=== PATIENT | male | born 1990 | race African-American/Black ===

== ENCOUNTER → 2018-10-17 | Outpatient (CLI) | payer OTHER ==
--- NOTE | 2018-10-18 19:14 | RADRPT ---
PROCEDURE: XR bilateral knees CLINICAL INDICATION: Pain TECHNIQUE: Bilateral AP and PA Merida views, bilateral sunrise views, weightbearing lateral view s of the left and right knee COMPARISON: None FINDINGS: Right knee: No displaced fracture. Mineralization is intact. Cartilage spaces are maintained. No sig nificant joint effusion. Left knee: No displaced fracture. Focal vertical linear lucency overlying the tibial plateau on late ral view. No significant joint effusion. IMPRESSION: 1. No significant cartilage space narrowing and marginal osteophyte formation. No significant joint effusion. 2. Focal vertical linear lucency overlying the left tibial plateau on lateral view may be projection al. Repeat radiographs or MRI may be obtained if clinically indicated. RPTAT: BBD[facility] Physician Geovanni Date Time Electronically viewed and signed by Physician Geovanni on 10/18/2018 19:14 [email or web address]/
--- NOTE | 2018-10-19 13:35 | CONS ---
Assessment/Plan Assessment/Plan Hospital Course (Demo Recall) 28-year-old male who injured his right knee just over 2 months ago. He is doing much better but continues to have 4/10 pain. His knee exam is normal today. His x-rays today do show a suspicious vertically oriented intra-articular line of the tibial plateau, only seen on the lateral view. This could be a nondisplaced tibial plateau fracture that is now clinically healed or could be a nondisplaced avulsion fracture of the tibial spine or this may be artifact/projectional. Given his mechanism of injury and continued pain an MRI of the right knee will be helpful in determining if this is real or not. In the meantime meloxicam 7.5 mg will be prescribed for pain. Depending on the results of the MRI the patient will be prescribed physical therapy. Follow-up after right knee MRI Consultation Date/Type/Reason Admit Date/Time Date of Consultation: Oct 17, 2018 Reason for Consultation Right knee pain Date/Time of Note DATE: 10/19/18 TIME: 13:27 Hx of Present Illness Is a 28-year-old male who presents to clinic today for evaluation and treatment of right knee. He initially injured his knee on several playing basketball. While he was jumping for a lay up he injured his right knee. This occurred on concentric loading while jumping. Patient denies a pop. The patient states the pain began anteriorly but now the pain is medially. At the time he did have ecchymosis and swelling. Denies any mechanical symptoms. At the time he was 10 out of 10 pain and cannot bear weight. However now he is able to bear weight without a gait aid though he does continue to have a limp. The pain is 4/10. Described as sharp and stabbing. Denies any back problems. He did not have any problems prior to this injury. He has been using heat and ice. He is also been taking ibuprofen and hydrocodone provided by the emergency department. Denies any other injury. Denies numbness and tingling Patient denies fever, chills, shortness of breath, chest pain, nausea/vomiting, constipation, diarrhea, numbness, and tingling. Past Medical History History of alcohol abuse Past Surgical History Past Surgical Hx: no surgical history Family History Significant Family History: no pertinent family hx Social History Alcohol Use: heavy (Daily) Smoking Status: Never smoker Drug Use: none Exam/Review of Systems Exam Vitals Weight: 160 pounds Height: 5 foot 8 inches Temperature: 90 point Heart Rate: 71 Blood Pressure: 153/102 Respiratory Rate: 14 Exam General: Alert, oriented x3. No Acute Distress. Heart: Regular rate and rhythm. Lungs: No respiratory distress. No accessory muscle use. Musculoskeletal: Right Knee This is a well developed male who is alert, oriented times three and in no apparent distress. Skin is intact over the right knee as well as the lower extremity with no abrasions, lacerations, or ulcerations. Observation of the patient's gait reveals a non antalgic gait with The no thrust. Frontal plane alignment is neutral. There is no pain on palpation of either joint line or the remainder of the knee. The patient demonstrates grinding anteriorly with ROM. Range of motion: 0 extension to approximately 1 4 degrees of flexion. Collateral ligament testing reveals no instability with varus or valgus stress at 0 and 30 degrees of flexion. Negative Nimesh's and negative posterior drawer. Neurovascularly intact with 5/5 EHL/tibialis anterior/gastroc. Sensation intact to light touch in a sural, saphenous, deep peroneal, superficial peroneal, medial and lateral plantar nerve distribution. Palpable, symmetric dorsalis pedis and posterior tibial pulses in both lower extremities. Hip examination normal. Imaging Imaging The patient received a standard set of films today that were personally reviewed. Imaging included a standing bilateral knee AP, PA flexion, merchant views and a dedicated lateral of the affected knee: There is neutral alignment of the knee. There is a vertical intra-articular line through the tibial plateau seen only on the lateral image. This is nondisplaced. There may be fracture versus projectional. There is no loss of joint space in any compartment(s). Note degenerative changes. JOSE L BUCHANAN MD Oct 19, 2018 13:35
== END | disposition home or self-care (01) ==
LOC: HKI 13:45
PROVIDERS: ATTEND Orthopaedic Surgery Adult Reconstructive Orthopaedic Surgery
DX: M25.562 Pain in left knee (principal); M25.561 Pain in right knee
CPT/HCPCS: 73564; Z7500; G0463